=== PATIENT | male | born 1945 | race Caucasian/White ===

== ENCOUNTER 2016-09-24 14:55 | Emergency (ER) | payer OTHER, BC ==
[2016-09-24 15:23] VITALS: BP 140/78; PULSE 69; RESP 16; TEMP 98.2; O2SAT 98
--- NOTE | 2016-09-24 15:33 | UCPHY ---
H & P Time Seen by Provider: 09/24/16 15:03 Patient Type: Established HPI/ROS: CHIEF COMPLAINT: Right 3rd MCP swelling HISTORY OF PRESENT ILLNESS: 71-year-old male history of diabetes, peripheral neuropathy, states that 5 days ago he bumped his right 3rd MCP dorsal aspect and has noticed soft tissue swelling ever since. He has noticed decreased range of motion along with soft tissue swelling. No discoloration. No erythema. Intact skin. No lymphangitic streaking. No fever no chills. No flu- like symptoms. PHYSICAL EXAM (Prior to examination, patient consented to physical exam, hands were washed and my usual and customary physical exam procedures followed) 1) GENERAL: Well-developed, well-nourished, alert and oriented. Appears to be in no acute distress. 2) HEAD: Normocephalic 3) HEENT: Pupils equal, round, reactive to light bilaterally. 4) LUNGS: Breathing comfortably. 5) MUSCULOSKELETAL: Soft tissue swelling and tenderness to the 3rd MCP dorsal aspect. Negative kanavel sign. Soft tissue swelling of the hand is present with decreased range of motion secondary to pain. Soft compartments. Normal coloration. Normal temperature. 6) SKIN: intact. No erythema. No induration. 7) VASCULAR: pulses and cap refill present are brisk 8) NEUROLOGIC: Radial, ulnar, median nerve function intact with no deficits appreciated on exam . No epitrochlear or axillary adenopathy proximally. DIFFERENTIAL DIAGNOSIS: in no particular order including but not limited to fracture, sprain, compartment syndrome Xray of the right hand interpreted by myself: no definitive acute osseous abnormality Procedure: Splint A volar Orthoglass splint was applied by ER wetlands technician. After application of the splint I returned and re-examined the patient. The splint was adequately immobilizing the joint and distal to the splint the patient's circulation and sensation were intact. Patient shows no signs of compartment syndrome. Was given orthopedic precautions. Smoking Status: Never smoked Constitutional: Initial Vital Signs Temperature (C) 36.8 C 09/24/16 15:19 Heart Rate 69 09/24/16 15:19 Respiratory Rate 16 09/24/16 15:19 Blood Pressure 140/78 H 09/24/16 15:19 O2 Sat (%) 98 09/24/16 15:19 O2 Delivery Mode Room Air Allergies/Adverse Reactions: pentazocine lactate [From [facility]] Allergy (Unknown, Verified 09/24/16 15:16) Unknown Home Medications: Medication Instructions Recorded Allopurinol 05/08/13 Ambien 05/08/13 Folbic 05/08/13 Hydrochlorothiazide 05/08/13 Rampiril 05/08/13 Xanax 05/08/13 Fish Oil 11/26/15 Vitamin C 11/26/15 Vitamin D3 11/26/15 Duloxetine HCl 09/24/16 Ferrous Sulfate 09/24/16 Lantus 100 UNITS/ML (*) 10 units 09/24/16 Lipitor 10 mg (*) 09/24/16 Metoprolol Succinate 09/24/16 Minoxidil 2.5 mg (*) 09/24/16 MDM/Departure - [facility] ED Course/Re-evaluation: Patient was also seen exam by Dr. Fer Calvo. Doubt septic arthritis. Doubt cellulitis. Doubt infectious flexor tenosynovitis. The patient has been splinted. Recommended elevation follow-up with Hand surgery. I do not think that emergent hand surgery consultation is indicated. - Depart Disposition: Home, Routine, Self-Care Clinical Impression: Swelling of right hand Condition: Good Instructions: Swollen Joint (ED) Additional Instructions: Return to the ER immediately if you experience discoloration, have worsening pain, numbness, tingling, or any other symptoms that concern you. If you received x-rays in the emergency department today, be advised, that ligamentous , tendon, muscular, and other non-bony injury cannot be fully ruled out. Try to keep your affected extremity elevated above the level of your chest, and keep cold packs on the affected area Referrals: Fer Stacy MD [Medical Doctor] - 2-3 days, call for appt. - PQRS PQRS Measurement: 134: Depression screening and followup, PRIME GARCIA-PHQ2 (12 years and older) Over the last 2 weeks, how often have you been bothered by any of the following problems? 1. Feeling down, depressed, or hopeless? 2. Little interest or pleasure in doing things? Patient answered no to both 1 and 2 130: Documentation of medications. Reviewed all patient medications, doses, route and frequency. 226: Do you smoke? No. 47: 65 and older: Advanced care planning. Patient has advanced directive. 51: 18 years old and older with diagnosis of COPD, spirometry performance. . Patient has no history of COPD 52: 18 years old and older with COPD and symptoms of COPD or FEV1<60% predicted prescribed a B Agonist. Not applicable
--- NOTE | 2016-09-24 15:55 | DX ---
Right Hand, Three Views, at 3:13 p.m. Clinical History: 71-year-old male with right hand swelling and pain' and no known trauma. Comparison Study: None. 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 There is al so some mild joint space narrowing associated with the 2nd through 4th PIP joints. Digital soft tiss ue swelling is observed. There is mild ulnar deviation of the 2nd and 3rd digits. A subchondral dexter de is seen along the radial base of the ring finger proximal phalanx. There is some degenerative sub chondral sclerosis and joint space narrowing at the capitate-lunate articulation' and also at the jorge a icular-greater multangular articulation. Impression: Degenerative features of the hands, with evidence of "erosive osteoarthritis" at the lev el of the distal interphalangeal joints.
== END 2016-09-24 16:30 | disposition home or self-care (01) ==
LOC: CED 14:55
DX: M25.441 Effusion, right hand (principal)
CPT/HCPCS: 73130; G0463

== ENCOUNTER 2017-01-26 13:29 | Emergency (ER) | payer OTHER, BC ==
[2017-01-26] MEDS ORDERED: ADENOSINE 6 MG/2 ML VIAL ONE (13:41)
--- NOTE | 2017-01-26 13:42 | CPEKG ---
Heart Rate: 177 RR Interval: 339 QRSD Interval: 72 QT Interval: 280 QTC Interval: 481 P [place]: 0 QRS [place]: 34 T Wave [place]: 222 EKG Severity - ABNORMAL ECG - EKG Impression: SUPRAVENTRICULAR TACHYCARDIA EKG Impression: REPOLARIZATION ABNORMALITY, PROB RATE RELATED Electronically Signed By: Fer Calvo 26-Jan-2017 15:55:00
[2017-01-26] MEDS ORDERED: NS 1,000 ML IV ONE (13:50)
[2017-01-26] MEDS ORDERED: METOPROLOL TARTRATE 5 MG/5 ML INJ IVP ONE ×2 (13:52→15:13)
[2017-01-26 13:56] LABS: % IMMATURE GRANULYOCYTES 0.6 % (0.0-1.1); ABSOLUTE IMMATURE GRANULOCYTES 0.05 10^3/uL (0.00-0.10); ADD DIFF? NO; ADD MORPH? NO; ADD SCAN? NO; ATYPICAL LYMPHOCYTE FLAG 10 (0-99); FRAGMENT RBC FLAG 0 (0-99); HEMATOCRIT 32.2 % (40.0-51.0); HEMOGLOBIN 11.8 g/dL (13.7-17.5); LEFT SHIFT FLG 0 (0-99); LIPEMIA HEMOLYSIS FLAG 90 (0-99); MEAN CELL HEMOGLOBIN 32.2 pg (27.9-34.1); MEAN CELL HEMOGLOBIN CONCENTR. 36.6 g/dL (32.4-36.7); MEAN CELL VOLUME 87.7 fL (81.5-99.8); MEAN PLATELET VOLUME 9.2 fL (8.7-11.7); PLATELET CLUMPS FLAG 10 (0-99); PLATELET COUNT 138 10^3/uL (150-400); RED BLOOD CELL COUNT 3.67 10^6/uL (4.40-6.38)
[2017-01-26 14:07] LABS: ANION GAP 21 mEq/L (8-16); CALCIUM 9.4 mg/dL (8.5-10.4); CARBON DIOXIDE 18 mEq/l (22-31); CHLORIDE 104 mEq/L (97-110); CREATININE 1.6 mg/dL (0.7-1.3); GLOMERULAR FILTRATION RATE 43; GLUCOSE 119 mg/dL (70-100); POTASSIUM 3.8 mEq/L (3.5-5.2); SODIUM 143 mEq/L (134-144)
[2017-01-26 14:16] VITALS: RESP 20
[2017-01-26 14:40] LABS: TROPONIN I 0.047 ng/mL (0-0.034)
--- NOTE | 2017-01-26 15:03 | CPEKG ---
Heart Rate: 103 RR Interval: 583 P-R Interval: 184 QRSD Interval: 72 QT Interval: 356 QTC Interval: 466 P [place]: 50 QRS [place]: 26 T Wave [place]: 42 EKG Severity - ABNORMAL ECG - EKG Impression: SINUS TACHYCARDIA EKG Impression: PROBABLE ANTEROSEPTAL INFARCT, OLD Electronically Signed By: Fer Calvo 26-Jan-2017 15:53:18
[2017-01-26] MEDS ORDERED: ASPIRIN 81 MG CHEWABLE TAB PO ONE (15:08)
[2017-01-26] MEDS ORDERED: METOPROLOL TARTRATE 25 MG TAB PO ONE (15:18)
--- NOTE | 2017-01-26 15:18 | EDPHY ---
H & P Stated Complaint: lightheaded, fast heart rate since 12-1230 today Time Seen by Provider: 01/26/17 13:38 HPI/ROS: This patient reports abrupt onset of heart palpitations described as a racing heart associated with lightheadedness today at around noon. 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 He reports no other associated symptoms. He is accompanied by his who drove him in for evaluation. He admits that he drank a ice coffee shortly prior to the onset of the symptoms and wondered if that may have contributed. He also inadvertently took an extra dose of Celexa this morning for total of 160 mg rather than his usual 100 mg dose. The patient recalls having 2 or 3 episodes with multifocal atrial tachycardia while living in [place] several years ago that resolved with Valsalva maneuver. He reports that he had no further dysrhythmias after the difficult marriage he was in at the time ended. ROS: Constitutional: No significant fatigue prior to the episode of heart palpitations. No other constitutional symptoms HEENT: No complaints Pulmonary: He denies dyspnea, cough Cardiovascular: No chest pain. No lower extremity swelling or pain. GI: No nausea or vomiting. No belly pain. : No symptoms Integumentary: No diaphoresis. 10 point ROS is otherwise negative Source: Patient, Family (He's accompanied by his who also provides hx.) Exam Limitations: No limitations - Personal History Tetanus Vaccine Date: within 10 years - Medical/Surgical History PMH: MAT that converted with Valsalva several years ago. IDDM HTN Mild Renal Insufficiency. Hx Asthma: No Hx Chronic Respiratory Disease: Yes Hx Diabetes: Yes Hx Cardiac Disease: No Hx Renal Disease: Yes Hx Cirrhosis: No Hx Alcoholism: No Hx HIV/AIDS: No Hx Splenectomy or Spleen Trauma: No Other PMH: DM 2, HTN, kidney failure-stage 3, anxiety, hyperlipidemia, depression, anemia, gout, insomnia. - Family History Significant Family History: Heart disease (Mother had an HI in her 60's) - Social History Smoking Status: Never smoked Alcohol Use: Occasionally Drug Use: Marijuana - Physical Exam Exam: Initially vitals notable for a pulse of 180 systolic pressure 110 General Appearance: Alert, no distress. Eyes: Pupils equal and round no pallor or injection. ENT, Mouth: Mucous membranes moist. Respiratory: There are no retractions, lungs are clear to auscultation. Cardiovascular: Tachycardic. No JVD. No lower extremity swelling or tenderness Gastrointestinal: Abdomen is soft and nontender, no masses, bowel sounds normal. Neurological: GCS 15. No focal sensory motor deficits. Skin: Warm and dry, no rashes. Musculoskeletal: Neck is supple nontender. Extremities are symmetrical, full range of motion. Psychiatric: Mood and affect normal DIFFERENTIAL DIAGNOSIS: After history and physical exam differential diagnosis was considered for SVT, rapid AFib, ischemic cardiac disease, dehydration, medication effect Constitutional: Initial Vital Signs Heart Rate 180 H 01/26/17 13:34 Respiratory Rate 21 H 01/26/17 13:34 Blood Pressure 105/72 01/26/17 13:34 O2 Sat (%) 97 01/26/17 13:34 O2 Delivery Mode Room Air Allergies/Adverse Reactions: pentazocine lactate [From [facility]] Allergy (Unknown, Verified 01/26/17 13:46) Unknown Home Medications: Medication Instructions Recorded Allopurinol 05/08/13 Ambien 05/08/13 Hydrochlorothiazide 05/08/13 Rampiril 05/08/13 Xanax 05/08/13 Fish Oil 11/26/15 Vitamin C 11/26/15 Vitamin D3 11/26/15 Duloxetine HCl 09/24/16 Ferrous Sulfate 09/24/16 Lantus 100 UNITS/ML (*) 10 units 09/24/16 Metoprolol Succinate 09/24/16 Minoxidil 2.5 mg (*) 09/24/16 Amlodipine Besylate 01/26/17 Folbic 01/26/17 Medical Decision Making - Diagnostics EKG Interpretation: Initial EKG performed at 1:40 p.m. reveals SVT at [address] depression anterolaterally likely were rate related repolarization abnormalities. For complete read please refer to trace master Overall assessment :SVT 177 with repolarization abnormality 2nd EKG performed at 1:48 p.m.-indication rhythm change with Valsalva maneuver reveals sinus a rhythm at 1:04 a.m. intervals: Normal throughout [place]: P of 65, QRS of 40, T of 37 ST segments: No ischemic findings. Overall assessment sinus arrhythmia 104 with borderline findings for LVH. For complete read please refer to trace master 3rd ECG: Indication mild elevation of troponin rule out HI performed at 3:01 p.m. reveals sinus tachycardia 103 Intervals: Normal throughout [place]: P of 50, QRS of 26, T of [address] abnormalities by my interpretation. Please refer to miquel for complete read Imaging Results: Chest x-ray: Granulomatous disease without acute abnormalities-read by radiologist and reviewed by myself ED Course/Re-evaluation: IV, monitor, normal saline bolus initiated I asked the patient to do a Valsalva maneuver which resulted in conversion from SVT to sinus arrhythmia. Treated with 1 L saline bolus, Lopressor IV-5 mg x2 and 12.5 p.o. with heart rate between 80 and 106 - resolved to normal sinus rhythm on the monitor. Patient feels comfortable. Discussion: Patient with combination of likely dehydration from yd work, caffeine and increase Celexa dose that, combined, likely contributed to the onset of his SVT. I counseled him regarding this. I spoke with Dr. Solis, science tutor regarding this patient's mildly elevated troponin he recommends admission for observation. I spoke with Dr. Garcia-hospitalist accepts patient for transfer for observation bed The patient understands my concern for potential ischemic coronary disease a possible early HI but declines admission. He signed an AMA form understand the risk of potential HI and cardiac arrest. We discussed plan of increasing his metoprolol dose and starting baby aspirin a day until he follows up this coming week with Dr. Solis-science tutor for further evaluation. He understands the need to call 911 if he develops any recurrent cardiac symptoms. I also spoke and with Dr. Solis-science tutor regarding the pt's leaving rather than being admitted. Dr. Solis will see the patient follow up this week for further evaluation & agrees with plan for baby ASA and increase in Metoprolol dose. - Data Points Laboratory Results: Laboratory Results 01/26/17 13:50 01/26/17 13:50 Medications Given: Discontinued Medications Aspirin (Aspirin) 324 mg PO EDNOW ONE Stop: 01/26/17 15:09 Last Admin: 01/26/17 15:14 Dose: 324 mg Sodium Chloride (Ns) 1,000 mls @ 0 mls/hr IV ONCE ONE PRN Reason: Wide Open Stop: 01/26/17 13:51 Last Admin: 01/26/17 13:43 Dose: 1,000 mls Metoprolol Tartrate (Lopressor Injection) 5 mg IVP EDNOW ONE Stop: 01/26/17 13:53 Last Admin: 01/26/17 13:55 Dose: 5 mg Metoprolol Tartrate (Lopressor Injection) 5 mg IVP EDNOW ONE Stop: 01/26/17 15:14 Last Admin: 01/26/17 15:29 Dose: 5 mg Metoprolol Tartrate (Lopressor) 12.5 mg PO EDNOW ONE Stop: 01/26/17 15:19 Last Admin: 01/26/17 15:40 Dose: 12.5 mg Departure - Departure Disposition: Against Medical Advice Clinical Impression: PSVT (paroxysmal supraventricular tachycardia), Elevated troponin Condition: Good Instructions: Supraventricular Tachycardia (ED) Additional Instructions: Diagnoses: 1. PSVT 2. Elevated troponin (heart enzyme) We recommended admission today. You declined admission. We cannot rule out myocardial infarction at this time Plan: Take a baby aspirin a day Increase your metoprolol dose by 25 mg in the evening dose. Continue taking her other medications. Call Dr. Solis-science tutor arrange follow-up appointment for this week for further evaluation Go to the emergency department if you have any repeat episodes of heart palpitations, chest pain, shortness breath, nausea vomiting or other concerns Referrals: Sukumar Boateng MD [Primary Care Provider] - As per Instructions Abhijeet Solis MD [Medical Doctor] - As per Instructions
[2017-01-26 15:20] VITALS: TEMP 98.1
[2017-01-26 16:49] VITALS: BP 120/79; PULSE 90; O2SAT 95
--- NOTE | 2017-01-28 16:44 | CPEKG ---
Heart Rate: 104 RR Interval: 577 P-R Interval: 188 QRSD Interval: 70 QT Interval: 344 QTC Interval: 453 P [place]: 65 QRS [place]: 40 T Wave [place]: 37 EKG Severity - ABNORMAL ECG - EKG Impression: SINUS TACHYCARDIA EKG Impression: PROBABLE LVH WITH SECONDARY REPOL ABNRM EKG Impression: PREMATURE ATRIAL CONTRACTIONS Electronically Signed By: Chrissy Barbosa 28-Jan-2017 17:22:24
== END 2017-01-26 15:52 | disposition left against medical advice (07) ==
LOC: CED 13:29 → UNDOADMOB 15:19 → CEDHOLD 15:19 → CED 15:52
DX: I47.1 Supraventricular tachycardia (principal); R79.89 Other specified abnormal findings of blood chemistry; E11.9 Type 2 diabetes mellitus without complications; I12.9 Hypertensive chronic kidney disease with stage 1 through stage 4 chronic kidney disease, or unspecified chronic kidney disease; N18.3 Chronic kidney disease, stage 3 (moderate); Z79.4 Long term (current) use of insulin
CPT/HCPCS: 71010-PO; 80048-PO; 84443-PO; 84484-PO; 85025-PO; 96374; J0153

== ENCOUNTER → 2017-06-13 | Outpatient (CLI) | payer OTHER, BC | LOC: CIMAGING 08:47 | DX: R16.1 Splenomegaly, not elsewhere classified (principal); R16.0 Hepatomegaly, not elsewhere classified; N28.1 Cyst of kidney, acquired | CPT/HCPCS: 76700-PO ==

== ENCOUNTER → 2017-08-06 | Outpatient (CLI) | payer OTHER, BC ==
[~2017-08-06] MED LIST: IOPAMIDOL (ISOVUE-300) 100 ML BTL ONE; IOPAMIDOL (ISOVUE-370) 150 ML BTL IV ONE
== END ==
LOC: CIMAGING 13:53
PROVIDERS: ATTEND Internal Medicine Endocrinology, Diabetes & Metabolism
DX: D35.01 Benign neoplasm of right adrenal gland (principal); I25.10 Atherosclerotic heart disease of native coronary artery without angina pectoris
CPT/HCPCS: 74150; Q9967; 82565-PO

== ENCOUNTER → 2018-08-01 | Outpatient (CLI) | payer OTHER, BC | LOC: CIMAGING 12:30 | PROVIDERS: ATTEND Internal Medicine Nephrology | DX: N18.3 Chronic kidney disease, stage 3 (moderate) (principal); N32.9 Bladder disorder, unspecified | CPT/HCPCS: 76770-PO ==

== ENCOUNTER 2018-09-30 12:03 | Emergency (ER) | payer OTHER, BC ==
[2018-09-30 12:20] VITALS: BP 142/78
== END 2018-09-30 12:33 | disposition left against medical advice (07) ==
DX: Z53.21 Procedure and treatment not carried out due to patient leaving prior to being seen by health care provider (principal)

== ENCOUNTER → 2019-01-16 | Outpatient (CLI) | payer OTHER, BC | LOC: CLAB 10:50 | PROVIDERS: ATTEND Internal Medicine | DX: D64.9 Anemia, unspecified (principal); I10 Essential (primary) hypertension; N18.3 Chronic kidney disease, stage 3 (moderate); R63.4 Abnormal weight loss; R73.09 Other abnormal glucose | CPT/HCPCS: 36415-PO; 71046-PO; 82607-90 ==

== ENCOUNTER → 2019-01-28 | Outpatient (CLI) | payer OTHER, BC | LOC: CIMAGING 09:43 | PROVIDERS: ATTEND Internal Medicine | DX: M54.5 Low back pain (principal); R63.4 Abnormal weight loss; M51.36 Other intervertebral disc degeneration, lumbar region | CPT/HCPCS: 72100-PO ==